=== PATIENT | female | born 1970 | race Caucasian/White ===

== ENCOUNTER → 2020-09-20 15:48 | Outpatient (CLI) | payer OTHER, SELFPAY ==
[2018-12-25 11:26] VITALS: BMI 25.6
[2020-09-20 16:39] LABS: Absolute Lymphocyte Count 2.47 X10^3/uL (0.83-4.51); Absolute Neutrophil Count 4.1 X10^3/uL (2.0-7.7); Basophil# 0.03 X10^3/uL; Basophil% 0.4 % (0-1); Eosinophil# 0.21 X10^3/uL; Eosinophils% 2.9 % (0-5); Hematocrit 36.9 % (37-47); Hemoglobin 12.1 g/dL (12.0-15.0); Lymphocyte # 2.47 X10^3/ul (4.0); Lymphocyte % 33.6 % (19-41); Mean Corp Hgb Conc 32.8 g/dL (32-36); Mean Corpuscular Hgb 31.5 pg (27.0-32.0); Mean Corpuscular Volume 96.1 fL (81-99); Mean Platelet Vol. 8.5 fl (6.2-12.0); Monocyte# 0.55 X10^3/uL; Monocyte% 7.5 % (0-10); NRBC Flagged by Analyzer 0 % (0-5); Neutrophil # 4.07 X10^3/uL (2.7-7.7); Neutrophil % 55.3 % (47-70); Platelet Count 288 K/mm3 (150-450); RBC Distribution Width CV 12.2 % (11.6-14.6); RBC Distribution Width SD 42.9 fl (35.1-43.9); Red Blood Count 3.84 M/mm3 (4.2-5.4); White Blood Count 7.4 K/mm3 (4.4-11.0)
[2020-09-20 16:59] LABS: Hemoglobin A1c 5.4 % (3.8-5.6)
[2020-09-20 18:05] LABS: Microalbumin,Random Urine 59.8 mg/L (NO RANGE EST.); Microalbumin:Creatinine Ratio 63.8 mg/g CRE (<30 mg/g CRE)
[2020-09-20 18:15] LABS: AST(SGOT) 19 U/L (15-37); Alanine Aminotransfer ALT/SGPT 35 U/L (13-56); Albumin, Serum 3.9 g/dL (3.2-5.0); Alkaline Phosphatase 60 U/L (45-117); Anion Gap 8 (5-15); BUN 12 mg/dL (7-18); BUN/Creat Ratio 16.2 RATIO (10-20); Bilirubin, Direct 0.19 mg/dL (0.00-0.30); Calcium,Total 8.9 mg/dL (8.5-10.1); Chloride 107 mmol/L (98-107); Cholesterol 185 mg/dL (200); Creatinine, Serum 0.74 mg/dL (0.55-1.02); EST Glomerular Filtration Rate 89 mL/min (>60); Est Glom Filt Rate - Afr Amer 107 mL/min (>60); Glucose 84 mg/dL (74-106); High Density Lipoprotein 91 mg/dL; Potassium 3.4 mmol/L (3.5-5.1); Protein, Total 6.9 g/dL (6.4-8.2); Sodium Level 142 mmol/L (136-145); Thyroid Stim Hormone (TSH) 1.34 uIU/mL (0.358-3.74); Triglycerides 52 mg/dL; Very Low Density Lipoprotein 10 mg/dL (5-40)
== END ==
PROVIDERS: PCP Family Medicine; Referring Provider Family Medicine; Visit Provider Family Medicine
DX: E78.5 Hyperlipidemia, unspecified (principal); Z79.899 Other long term (current) drug therapy; E11.9 Type 2 diabetes mellitus without complications
CPT/HCPCS: 36415; 80048; 80061; 80076; 82043; 82570; 83036; 84443; 85025

== ENCOUNTER 2021-02-08 10:40 | Outpatient (RCR) | payer OTHER, SELFPAY ==
[2018-12-25 11:26] VITALS: BMI 25.6
[2021-02-08] MEDS: COVID-19 VACC, MRNA(PFIZER)/PF 30 MCG/0.3 ML SYRINGE IM (16:08)
[2021-03-01] MEDS: COVID-19 VACC, MRNA(PFIZER)/PF 30 MCG/0.3 ML SYRINGE IM (16:13)
== END 2021-02-08 23:59 ==
LOC: IMMUN 10:40
PROVIDERS: PCP Family Medicine; Visit Provider Family Medicine
DX: Z23 Encounter for immunization (principal)
CPT/HCPCS: 0001A; 0002A; 91300

== ENCOUNTER 2021-06-13 08:35 | Emergency (ER) | payer OTHER, SELFPAY ==
[2018-12-25 11:26] VITALS: BMI 25.6
[2021-06-13 08:36] VITALS: BP 128/88; PULSE 94; RESP 14; TEMP 36.4; O2SAT 98; BMI 25.0
--- NOTE | 2021-06-13 08:59 | EX.ED.DYSGE1 ---
HPI History of Present Illness Chief Complaint: Allergic Reaction Narrative Narrative: Patient presenting secondary to a reaction to a bee sting. Patient states that late last night she was out working in her garden and felt something sting her on the leg, it was dark outside so she was not sure what it was. Patient states that she does have a past history of reaction that actually required her to get admission to the hospital. Patient states that last night she felt generally ill, lightheaded, and stated that she took her blood pressure at home and it was actually low. Today she states that she still feels somewhat generally ill she denies any lip or tongue swelling or shortness of breath but does state that she is having spreading redness and itching over her left leg. Patient denies any other associated symptoms. She does have a underlying history of well-controlled type 2 diabetes on Metformin. Review of systems otherwise negative. [facility] Medical History Anemia Diabetes Hay fever Hypertension Severe headache Home Medications alprazolam 0.25 mg tablet 0.25 mg PO BID 12/25/18 [History Last Taken Unknown] benzonatate 200 mg capsule 200 mg PO TID PRN #20 cap 12/25/18 [Rx Last Taken Unknown] lisinopril 2.5 mg tablet 2.5 mg PO DAILY 12/25/18 [History Last Taken Unknown] metformin 500 mg tablet 500 mg PO BID 12/25/18 [History Last Taken Unknown] sertraline 25 mg tablet 25 mg PO DAILY 12/25/18 [History Last Taken Unknown] prednisone 40 mg PO DAILY #10 tab 06/13/21 [Rx Last Taken Unknown] Allergy/AdvReac Type Severity Reaction Status Date / Time BEE Allergy Swelling Uncoded 06/13/21 08:36 Family History Other Anxiety Diabetes Heart disease Surgical History History of section Social History Smoking Status: Current some day smoker tobacco type: cigarettes alcohol intake: current ROS ROS ED Constitutional Constitutional ED: Reports other Details: Malaise ENT ENT ED: Denies rhinorrhea Cardiovascular Cardiovascular: Denies chest pain Respiratory/Chest Respiratory/Chest: Denies cough or dyspnea Gastrointestinal Gastrointestinal: Denies abdominal pain, diarrhea, nausea or vomiting Genitourinary Genitourinary ED: Denies dysuria or hematuria Musculoskeletal Musculoskeletal: Denies back pain Integumentary Denies rash Neurologic Neurologic: Denies paresthesias or weakness Psychiatric Psychiatric: Denies depression Endocrine Endocrinology: Denies fatigue Allergic/Immunologic Allergic/Immunologic ED: Reports urticaria; Denies mouth swelling or tongue swelling EXAM Physical Exam Const Vital Signs: 06/13/21 08:36 Temperature 97.6 F L Temperature Source Temporal Pulse Rate 94 Respiratory Rate 14 Blood Pressure 128/88 H Blood Pressure Mean 101 Pulse Ox 98 Oxygen Delivery Method Room Air Positive well nourished and well developed General Appearance ED: well developed and NAD HEENT Reports moist mucous membranes HEENT Narrative: No evidence of lip or tongue swelling or mucosal involvement pharynx is clear and patent, no signs of stridor or abnormal lung sounds Negative for trauma or tenderness Eyes EOMs intact bilaterally Neck no lymphadenopathy, supple and no JVD Chest Wall inspection of chest normal Resp normal respiratory effort and clear to auscultation bilaterally Cardio regular rate, regular rhythm, no murmurs and peripheral pulses 2+ throughout GI normal to inspection, nondistended, normoactive bowel sounds, non-tender and no masses Palpation: soft Back/Spine normal to inspection Extremity normal to inspection General Extremety ED: Negative for tenderness Neuro oriented x3 and no sensory deficits noted Sensorium / Orientation: alert Motor Exam: strength 5/5 throughout Psych mental status grossly normal Skin Skin Narrative: Examination the patient's left leg shows diffuse urticarial erythema over the anterior portion of the patient's proximal johansen spreading just proximal to the patient's knee. No evidence of stinger retained mouthparts. No fluctuance or induration. No lymphangitic streaking is noted. MDM MDM MDM Narrative Medical decision making narrative: Patient presenting secondary to a reaction to a bee sting. Sounds like last night maybe she was having more of a severe reaction as she had a measured low blood pressure and generalized malaise but she has normal blood pressure now and does not have any evidence of anaphylaxis. She does have a reasonably large localized reaction to the bee sting and as she has had a history of this getting bad to the point where she required admission I believe that the benefits outweigh the risks of placing the patient on a burst of prednisone. Patient will be provided with this she was recommended to closely monitor blood sugars. Patient was discharged in stable condition. Discharge Plan Triage Chief Complaint: Allergic Reaction ED Provider: David Heredia Dx/Rx/DC Orders Clinical Impression: Bee sting reaction Instructions: ED Insect Sting, Local Reaction Prescriptions: New prednisone 20 mg tablet 40 mg PO DAILY Qty: 10 RF: 0 No Action lisinopril 2.5 mg tablet 2.5 mg PO DAILY RF: 0 metformin 500 mg tablet 500 mg PO BID RF: 0 sertraline [Zoloft] 25 mg tablet 25 mg PO DAILY RF: 0 alprazolam [Xanax] 0.25 mg tablet 0.25 mg PO BID RF: 0 benzonatate 200 mg capsule 200 mg PO TID PRN (Reason: cough) Qty: 20 RF: 0 Primary Care Provider: Jese Hall Referrals: Jese Hall MD [Primary Care Provider] - As Needed Disposition Disposition: Home, Self Care
[2021-06-13 09:30] VITALS: RESP 16
== END 2021-06-13 09:30 | disposition home or self-care (01) ==
LOC: ED 09:09
PROVIDERS: Emergency Provider Emergency Medicine; PCP Family Medicine
DX: T63.441A Toxic effect of venom of bees, accidental (unintentional), initial encounter (principal); D64.9 Anemia, unspecified; E11.9 Type 2 diabetes mellitus without complications; I10 Essential (primary) hypertension; F17.210 Nicotine dependence, cigarettes, uncomplicated; Z79.52 Long term (current) use of systemic steroids; Z79.84 Long term (current) use of oral hypoglycemic drugs
CPT/HCPCS: 99282

== ENCOUNTER 2022-12-22 09:39 | Emergency (ER) | payer OTHER, SELFPAY ==
[2022-12-22 09:40] VITALS: BP 126/78; PULSE 78; RESP 18; TEMP 36.3; O2SAT 99; BMI 23.1
--- NOTE | 2022-12-22 09:51 | EX.ED.UPPERE ---
HPI History of Present Illness HPI Narrative: Left pinky finger laceration while opening an avocado. Chief Complaint: Laceration Informant: patient Occured/Mechanism Mechanism/Context: Yes injury Onset/Context/Timing Onset: Today Context: Sudden Onset Timing: Continuous Quality of Pain: Sharp and Stabbing Current Severity: Mild Maximum Severity: Mild Associated Symptoms Associated Symptoms: Positive for Parasthesia; Negative for Weakness or Loss of Funtion Narrative Narrative: 52-year-old female diabetes and hypertension. [id number]. She was opening an avocado at home with a knife slipped and lacerated the radial side of her left pinky finger in the area of the mid phalanx. States she has numbness on the radial side of the pinky. Normal range of motion. States she did have pulsatile bleeding at home. That is since subsided. Tetanus Immunization: >10 years Prior similar symptoms: No Recent Illness/Hospitalization: No PFSH PFSH Medical History Anemia Diabetes Hay fever Hypertension Severe headache Home Medications alprazolam 0.25 mg tablet (Xanax) 0.25 mg PO BID 12/25/18 [History Last Taken Unknown] benzonatate 200 mg capsule 200 mg PO TID PRN cough #20 caps 12/25/18 [Rx Last Taken Unknown] lisinopril 2.5 mg tablet 2.5 mg PO DAILY 12/25/18 [History Last Taken Unknown] metformin 500 mg tablet 500 mg PO BID 12/25/18 [History Last Taken Unknown] sertraline 25 mg tablet (Zoloft) 25 mg PO DAILY 12/25/18 [History Last Taken Unknown] prednisone 20 mg tablet 40 mg PO DAILY #10 tabs 06/13/21 [Rx Last Taken Unknown] Allergy/AdvReac Type Severity Reaction Status Date / Time bee venom protein (honey bee) Allergy Swelling Verified 12/22/22 09:40 Family History Other Anxiety Diabetes Heart disease Surgical History History of section Social History Smoking Status: Current some day smoker tobacco type: cigarettes alcohol intake: current ROS ROS ED ROS Narrative Denies recent illness. Review of Systems ROS Unobtainable: Denies due to encephalopathy Constitutional Constitutional ED: Denies fever(s) Eyes Eyes: Denies blurry vision ENT ENT ED: Denies ear pain Cardiovascular Cardiovascular: Denies chest pain Respiratory/Chest Respiratory/Chest: Denies cough Gastrointestinal Gastrointestinal: Denies abdominal pain Genitourinary Genitourinary ED: Denies dysuria Musculoskeletal Musculoskeletal: Denies back pain Integumentary Denies abscess Neurologic Neurologic: Denies headache(s) Psychiatric Psychiatric: Denies anxiety Endocrine Endocrinology: Denies cold intolerance Hematologic/Lymphatic Hematologic/Lymphatic: Denies easy bleeding Allergic/Immunologic Allergic/Immunologic ED: Denies mouth swelling or tongue swelling EXAM Physical Exam Narrative Exam Narrative: 52-year-old female no acute distress. Vital signs stable afebrile. HEENT, neck, heart and lung exam unremarkable. Abdomen nontender. Moving all 4 extremities. Her left pinky finger on the radial side has a 2 and half centimeter irregular laceration. This will need close. Currently there is no active bleeding. She has full flexion-extension of all digits of the left hand. She has rings on the ring finger that had to be removed. She has decreased touch sensation on the radial side of the distal pinky. Normal sensation on the ulnar side. Normal flexion-extension. No foreign body noted. No infection. Const Vital Signs: 12/22/22 09:40 Temperature 97.4 F L Temperature Source Temporal Pulse Rate 78 Respiratory Rate 18 Blood Pressure 126/78 H Blood Pressure Mean 94 Pulse Ox 99 Oxygen Delivery Method Room Air Positive well nourished and well developed; Negative for cachectic, contractures or unkempt General Appearance ED: well developed and NAD; Negative for unkempt, cachectic, contractures, cyanotic or diaphoretic Nutritional Appearance: Negative for cachectic HEENT normocephalic and atraumatic; Negative for trauma or tenderness Eyes PERRL and EOMs intact bilaterally General Eye ED: Negative for other Neck full ROM and supple General: Negative for tenderness Lymph Lymphatic: Negative for other Chest Wall inspection of chest normal and palpation of chest normal Resp normal respiratory effort and clear to auscultation bilaterally Cardio regular rhythm, S1 normal heart sound, S2 normal heart sound and no murmurs Rate: Negative for bradycardia GI non-tender, non-distended and no masses Inspection: Negative for abdominal distention Auscultation: Negative for normoactive bowel sounds Palpation: soft; Negative for tender Back/Spine no CVA tenderness Extremity normal to inspection and full ROM Extremity Narrative: Except left pinky. Irregular laceration radial side. Decreased sensation distally. Normal range of motion. No deformity. No foreign body. No infection. Neuro oriented x3, moves all extremities, no focal motor deficits and No no sensory deficits noted Neuro Narrative: Left pinky finger radial side decreased sensation distally. Sensorium / Orientation: alert, oriented to person, oriented to place and oriented to time; Negative for orientation impaired, lethargic or stuporous Motor Exam: strength 5/5 throughout Psych mental status grossly normal Appearance: Negative for unkempt Attitude: No agitated Mood & Affect: Negative for depressed or anxious Skin General Skin Exam: Negative for petechiae Lesions: no lesions Rashes: no rashes Trauma: laceration; Negative for no lacerations or abrasions MDM MDM MDM Narrative Medical decision making narrative: 52-year-old female left small finger laceration which will need to be repaired. She may have digital nerve injury due to decreased sensation distally to the wound. She has full flexion-extension. Does not appear to be any bony or joint involvement. There is no signs of infection. Her tetanus is updated. She says been much greater than 10 years. Area be cleaned. Rings will be removed from the ring finger. Locally anesthetized with lidocaine. Cleaned with Shur-Clens. Washed with saline. Explored and closed. Procedures Lacerations Left small finger laceration repair:: Length: 0.98 in Depth: Sub Q Shape: Irregular Prep: Shure-Clens Laceration repair: Digital block, Local, Nerve block and Skin sutures Number of Sutures/Bryant: 4 Suture Information: Ethilon, Simple and 5-0 Comment: Left small finger, radial side, irregular 2.5 cm laceration repair. Digital block with lidocaine. Cleaned with Shur-Clens. Washed and irrigated with saline. Explored. Closed using simple interrupted 5-0 Ethilon sutures. 4 sutures were placed. Patient tolerated procedure well. She was instructed she may have digital nerve injury from the laceration that may or may not improve. Discharge Plan Triage Chief Complaint: Laceration ED Provider: Jesus Cruz Dx/Rx/DC Orders Clinical Impression: Laceration of left little finger, Injury of digital nerve of finger Instructions: ED Laceration, Hand: All Closures Prescriptions: No Action lisinopril 2.5 mg tablet 2.5 mg PO DAILY metformin 500 mg tablet 500 mg PO BID sertraline [Zoloft] 25 mg tablet 25 mg PO DAILY alprazolam [Xanax] 0.25 mg tablet 0.25 mg PO BID benzonatate 200 mg capsule 200 mg PO TID PRN (Reason: cough) Qty: 20 0RF prednisone 20 mg tablet 40 mg PO DAILY Qty: 10 0RF Primary Care Provider: Jese Hall Referrals: Jese Hall MD [Primary Care Provider] - 10 Day for suture removal Activity Restrictions/Additional Instructions: Ice and elevate to decrease pain and swelling. Motrin and Tylenol for pain and swelling. Do not put any rings on his finger until the stitches are removed. Watch for any signs of infection such as pus, redness, swelling, fever or streaks. If seen return. Stitches out in 7 to 10 days. I typically would wait 10 days. Disposition Disposition: Home, Self Care
[2022-12-22] MEDS: Diphth,Pertuss(Acell),Tet Vac 0.5 ML Vial IM (10:01)
[2022-12-22] MEDS: Lidocaine 1% (30 ml sdv) 30 ML Vial 10 ML INFILT (11:13)
[2022-12-22 11:16] VITALS: RESP 16
== END 2022-12-22 11:16 | disposition home or self-care (01) ==
LOC: ED 10:09
PROVIDERS: Emergency Provider Emergency Medicine; PCP Family Medicine; Visit Provider Emergency Medicine
DX: S64.497A Injury of digital nerve of left little finger, initial encounter (principal); E11.9 Type 2 diabetes mellitus without complications; S61.217A Laceration without foreign body of left little finger without damage to nail, initial encounter; F17.210 Nicotine dependence, cigarettes, uncomplicated; I10 Essential (primary) hypertension; Z23 Encounter for immunization; W26.0XXA Contact with knife, initial encounter
CPT/HCPCS: 12001; 90471; 90715; 99283